=== PATIENT | female | born 1950 | race Caucasian/White ===

== ENCOUNTER 2023-07-11 07:47 | Outpatient (CLI) | payer OTHER, SELFPAY ==
--- NOTE | 2023-07-11 07:52 | DI.CT.S_ITS ---
PROCEDURE: CT BIOPSY LUNG RT Sedation analgesia for 0 minutes. INDICATIONS: metablic nodule TECHNIQUE: The indications, alternatives, benefits, risks, and possible complications of the procedure were communicated to the patient. Informed written consent from the patient was obtained and placed in the chart. Continuous EKG and hemodynamic monitoring was started by trained personnel. The patient was brought to the CT suite and pillowcase maker spiral CT imaging was performed with localization grid. It was determined that the mass has decreased in size compared with 05/01/2023. This measures 2.3 x 1.5 cm in maximum axial diameter, previously 2.8 x 1.7 cm. The examination was terminated as this was felt to represent infection over malignancy. COMPARISON: [facility], , CT THORAX WITH CONTRAST, 05/01/2023, 14:39. FINDINGS: Interval decrease in size of the right lower lobe mass. Based on the close association to the airway, findings favor ABPA over malignancy. Recommend 1-2 month follow-up with low-dose chest CT to document interval change. IMPRESSION: No biopsy performed. Recommend 1-2 month follow-up with low-dose chest CT to document interval change. Dictated by: Brian Myles M.D. on 07/11/2023 at 10:10 Approved by: Brian Myles M.D. on 07/11/2023 at 10:13
[2023-07-11 08:20] VITALS: BP 148/74; PULSE 66; RESP 16; TEMP 37.1; O2SAT 100; BMI 21.4
[2023-07-11 09:05] LABS: Platelet Count 342 X10^3/uL (150-400)
[2023-07-11 09:12] LABS: INR 1.1 (0.9-1.3); Prothrombin Time 12.1 SECONDS (9.4-12.5)
[2023-07-11 09:33] VITALS: BP 124/60; PULSE 60; RESP 14; O2SAT 100
[2023-07-11 09:45] VITALS: BP 144/71; PULSE 62; RESP 17; TEMP 37.2; O2SAT 96
== END 2023-07-11 10:05 | disposition home or self-care (01) ==
PROVIDERS: Specialist; Referring Provider Internal Medicine Critical Care Medicine; Visit Provider Internal Medicine Critical Care Medicine
PROC: BB24ZZZ Computerized Tomography (CT Scan) of Bilateral Lungs (ICD-10-PCS; CPT 32408; principal; 2023-07-11 09:00)
DX: R91.1 Solitary pulmonary nodule (principal)
CPT/HCPCS: 32408; 36415; 85014; 85049; 85610

== ENCOUNTER → 2023-09-20 15:05 | Outpatient (CLI) | payer OTHER, SELFPAY ==
--- NOTE | 2023-09-20 15:07 | DI.CT.S_ITS ---
PROCEDURE: CT CHEST WO CON INDICATIONS: follow up nodules TECHNIQUE: Noncontrast 5 mm thick sections acquired from the pulmonary apices to the posterior costophrenic angles. 1 mm lung window, 5 mm thick coronal and sagittal and 7 mm axial MIP reformats were then acquired. For radiation dose reduction, the following was used: automated exposure control, adjustment of mA and/or kV according to patient size. COMPARISON: [facility], , CT THORAX WITH CONTRAST, 05/01/2023, 14:39. [facility], CT, CT BIOPSY LUNG RT, 07/11/2023, 9:24. FINDINGS: Image quality: Diagnostic. Lower Neck: No enlarged lymph nodes. Thyroid: No thyroid nodules which require sonographic follow up, per consensus guidelines. Axillae: No enlarged lymph nodes. Chest Wall: Unremarkable. Bones: No acute fractures. No aggressive appearing lytic or blastic osseous lesions. Mild multilevel degenerative changes of the spine. Lungs and Pleura: No pneumothorax or pleural effusions. Compared to CT chest dated July 11, 2023, no new or enlarging solid pulmonary nodule or consolidation. Right lower lobe partially calcified nodule measures 2.8 x 1.6 cm (3/170), previously 2.8 x 1.7 cm (3/59). As before, this is contiguous with a right lower lobe bronchial (3/162). Remainder of the central airways are patent. Heart: Heart size is normal. No pericardial effusion. Severe three-vessel coronary calcification. Thoracic Vessels: The aorta and pulmonary arteries demonstrate normal size. Mild calcification of the thoracic aorta. Mediastinum and Jihan: No enlarged lymph nodes. Esophagus: No wall thickening. No hiatal hernia. Upper Abdomen: Stable left adrenal nodule measuring 2.8 x 2.4 cm with Hounsfield unit of -5.9 compatible with a benign adenoma (2/53). Calcification of the visualized abdominal aorta. IMPRESSION: 1. Compared to CT chest dated July 11, 2023, no new or enlarging solid pulmonary nodule or consolidation. Right lower lobe partially calcified nodule is stable in size measuring 2.8 x 1.6 cm, previously 2.8 x 1.7 cm and contiguous with a a right lower lobe bronchial. No lymphadenopathy. Findings favor ABPA over malignancy. -Recommend close interval follow-up low-dose chest CT in 3-6 months. 2. Stable left adrenal nodule measuring 2.8 x 2.4 cm with Hounsfield unit of -5.9 compatible with a benign adenoma. 3. Severe three-vessel coronary calcification. Consider Cardiology consultation. Dictated by: Aleksandr Webb M.D. on 09/21/2023 at 11:00 Approved by: Aleksandr Webb M.D. on 09/21/2023 at 11:09
== END ==
PROVIDERS: Referring Provider Internal Medicine Critical Care Medicine; Visit Provider Internal Medicine Critical Care Medicine
DX: R91.1 Solitary pulmonary nodule (principal); I25.10 Atherosclerotic heart disease of native coronary artery without angina pectoris; E27.9 Disorder of adrenal gland, unspecified
CPT/HCPCS: 71250